=== PATIENT | female | born 1950 | race Caucasian/White ===

== ENCOUNTER 2020-03-15 15:55 | Observation (INO) | payer OTHER ==
[~2020-03-15] VITALS: Ht 152.4 cm; Wt 77.1 kg
[2020-03-15 16:04] VITALS: BP 171/92
[2020-03-15] MEDS ORDERED: DORYX MPC120 MG PO (16:08)
[2020-03-15] MEDS ORDERED: WELLBUTRIN XL300 MG PO (16:08)
[2020-03-15 16:21] LABS: ABSOLUTE BASOPHILS 0.1 thou/uL (0.0-0.2); ABSOLUTE EOSINOPHILS 0.2 thou/uL (0.0-0.7); ABSOLUTE LYMPHOCYTES 1.9 thou/uL (0.8-5.3); ABSOLUTE MONOCYTES 0.6 thou/uL (0.0-1.2); ABSOLUTE NEUTROPHILS 3.4 thou/uL (1.6-8.1); BASOPHILS 0.9 %; EOSINOPHILS 3.6 %; HEMATOCRIT 39.4 % (37.0-47.0); HEMOGLOBIN 13.2 gm/dL (12.0-15.0); LYMPHOCYTES 31.1 %; MCHC 33.5 g/dL (28.0-37.0); MCV 83.5 fL (80.0-100.0); MPV 7.2 fl. (7.2-11.1); NUCLEATED RBCS 0 /100WBC; PLATELET COUNT* 222 thou/uL (150-400); POLYS 54.4 %; RBC 4.72 mil/uL (4.20-5.00); RDW-CV 14.2 % (10.5-14.5); WBC 6.2 thou/uL (4.0-11.0)
[2020-03-15 16:30] LABS: CREATININE 0.8 mg/dL (0.6-1.3)
[2020-03-15 16:33] LABS: APTT 21.8 Seconds (25.0-31.3); PROTIME 9.7 Seconds (9.20-11.50)
[2020-03-15 16:40] LABS: ALBUMIN 4.1 g/dL (3.4-5.0); MAGNESIUM 2.2 mg/dL (1.8-2.4); TOTAL BILIRUBIN 0.3 mg/dL (<0.1-1.0); TOTAL PROTEIN 7.9 g/dL (6.4-8.2)
[2020-03-15 17:20] LABS: INR < 0.9
[2020-03-15 19:39] VITALS: BP 132/65
[2020-03-15 20:00] VITALS: BP 120/70
[2020-03-15] MEDS ORDERED: ACYCLOVIR 200200 MG PO (23:09)
[2020-03-15] MEDS ORDERED: XALATAN2.5 M1 OPHTHALMIC (23:11)
[2020-03-15] MEDS ORDERED: D3-200050 MCG PO (23:13)
[2020-03-15] MEDS ORDERED: CO Q-10200 MG PO (23:13)
[2020-03-15] MEDS ORDERED: OMEGA 3 1,0001 EACH PO (23:15)
[2020-03-15] MEDS ORDERED: RED YEAST RICE600 M1 PO (23:16)
[2020-03-15] MEDS ORDERED: VITAMIN C500 M1 PO (23:17)
[2020-03-15] MEDS ORDERED: B12 ACTIVE1000 MCG PO (23:17)
[2020-03-16 00:59] LABS: HEMATOCRIT 34.3 % (37.0-47.0); HEMOGLOBIN 11.7 gm/dL (12.0-15.0); MCH 28.5 pg (26.0-34.0); MCHC 34.1 g/dL (28.0-37.0); MCV 83.5 fL (80.0-100.0); MPV 7.4 fl. (7.2-11.1); RBC 4.1 mil/uL (4.20-5.00); RDW-CV 13.8 % (10.5-14.5); WBC 7.8 thou/uL (4.0-11.0)
[2020-03-16 01:24] LABS: CALCIUM 8.8 mg/dL (8.5-10.1); POTASSIUM 3.9 mmol/L (3.5-5.1)
[2020-03-16 01:29] LABS: ALBUMIN 3.6 g/dL (3.4-5.0); TOTAL BILIRUBIN 0.2 mg/dL (<0.1-1.0); TOTAL PROTEIN 6.7 g/dL (6.4-8.2)
[2020-03-16 01:43] VITALS: BP 113/69
--- NOTE | 2020-03-16 07:21 | NUR ---
PT ADMITTED TO 223 @ ABOUT 1999 THIS PM SHIFT. ALERT AND ORIENTED. VSS ON RA. DENIED CHEST PAIN THIS SHIFT. TYLENOL GIVEN FOR ANGEL. PT VOICED SLEEPING OFF AND ON. AMBULATES INDEPENDENTLY. LAC IV INFILTRATED. NEW IV TO LFA 20G SL. CARDIOLOGY CONSULT CALLED. NPO AFTER MIDNIGHT. ABD AND CAROTID US TODAY PER DR ROBERTO. PT ORIENTED TO AND CALL LIGHT. WILL CONTINUE TO MONITOR.
[2020-03-16] MEDS ORDERED: ASA81BEC PO (07:38)
[2020-03-16 07:51] VITALS: BP 115/65
--- NOTE | 2020-03-16 08:59 | NUR ---
ASSUMED CARE OF PT THIS AM AROUND 0715- PREDATOR CONTROL TRAPPER IN PLACE ORDERED, TRACING SR- UPON ASSESSMEN PT NOTED TO BE RESTING IN BED- PT A&O X4- CONT OF B/B- UP AD-CHRISTINA IN ROOM, STEADY GAIT NOTED-LCTA, RESP EVEN AND UN-LABORED- VSS, O2 SAT 94% ON RA- ABD SOFT/ROUND/NON-TENDER, BS X4 QUADS- LAST BM REPORTED 03/15/20- IV NOTED TO LEFT WRIST INTACT AND SL- PT CURRENTLY NPO FOR CARDIO CONSULT AND ABD US THIS SHIFT- RATES HEAD ACHE 06/05, DARK/QUIET ENVIRONMENT IN PLACE- CALL LIGHT AND PESONAL BELONGINGS WITH IN REACH- ALL NEEDS MET AT THIS TIME
--- NOTE | 2020-03-16 09:48 | NUR ---
CM SPOKE TO THE PT TO DISCUSS CM ASSESSMENT. PT A&O, INDEPENDENT WITH ADL'S, AND ACTIVE. PT USES 0 DME. PT HAS 0 HX OF HH OR SNF
[2020-03-16 12:00] VITALS: BP 96/51
--- NOTE | 2020-03-16 13:12 | EKG ---
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 : 1950 Requested By: Kapil Reed Order Number: [id number] MD: Jaskaran Collier Measurements Intervals [place] Rate: 86 P: 59 CO: 144 QRS: -26 QRSD: 96 T: 22 QT: 389 QTc: 466 Interpretive Statements Sinus rhythm Probable left atrial enlargement Borderline left axis deviation Baseline wander in lead(s) I,aVR,aVL,V5 No previous ECG available for comparison Electronically Signed On 03-16-2020 13:11:57 HOSPITAL WELLNESS COORDINATOR by Jaskaran Collier [email or web address] <ELECTRONICALLY SIGNED> By: Jaskaran Collier MD, [facility] 03/16/20 1311 1602 1602 Jaskaran Collier MD, [facility] /EPI
--- NOTE | 2020-03-16 14:10 | EKG ---
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 : 1950 Requested By: Sonya Cheung Order Number: [id number] Tarik MD: Tyrone Martinez Measurements Intervals [place] Rate: 89 P: 56 SD: 147 QRS: -18 QRSD: 96 T: 26 QT: 376 QTc: 458 Interpretive Statements Sinus rhythm Probable left atrial enlargement Borderline left axis deviation Compared to ECG 03/15/2020 16:02:48 No significant changes Electronically Signed On 03-16-2020 14:10:38 RECYCLING CREW SUPERVISOR by Tyrone Martinez [email or web address] <ELECTRONICALLY SIGNED> By: Tyrone Martinez MD, FACC 03/16/20 1410 1209 1209 Tyrone Martinez MD, [facility] /EPI
[2020-03-16 17:28] VITALS: BP 96/51
--- NOTE | 2020-03-16 17:28 | CARDNUC ---
[place] [address] CARDIAC NUCLEAR IMAGING REPORT Name: GHAZALA HERRERA Room: [address] M.R.#: [id number] Admission: 03/15/20 Attend Phys: Patricia De, Discharge: Date of : 54 Date of Service: 03/16/20 1727 Report #: [id number] THIS REPORT FOR: cc: Jaskaran Escalante David J. DO Liston, Michael J. MD [facility] ~ APPROVED REPORT Imaging Protocol: Stress Tc-99mm Only Study performed: 03/16/2020 09:50:00 Indication: Chest pain with left arm numbness. Patient Location: In-Patient Room #: 223 Stress Tech: Lucille Rodriguez Stress Nurse: Suzette Monson RN NM Tech:MARY JANE Thomas Ht: 5 ft 0 in Wt: 170 lbs BSA: 1.74 m2 BMI: 33.19 Medical History Medical History: Chest pain with left arm numbness, memory loss, HLD, past smoker, obesity, knee stiffness/pain. Medications: ASA 325 Mg, [place] 3's, Red Yeast Rice. Allergies: PNC, Sulfa ABX, Codeine, Alcohol, Ciprofloxacin, Clarithromycin, Azithromycin, Amoxicillin, Levofloxacin, milk. Cardiac Risk Factors: Age, FHX of CAD, Hyperlipidemia, Past Smoker, obesity. Previous Cardiac Procedures: None Pretest Chest Pain Characteristics: None Exercise History: Physically active Physical Disabilities: Knee discomfort/pain/stiffness. Meds Held (24 hrs): None Exercise Stress At peak stress, the patient was injected intravenously with 28.3mCi of Tc-99m Sestamibi. Time of stress injection: 1535 Date: 03/16/2020 Administration Route: IV Administration Site: Left Hand Gated Stress SPECT was performed 30 [place] [address] CARDIAC NUCLEAR IMAGING REPORT Name: GHAZALA HERRERA Room: [address]R.#: [id number] Admission: 03/15/20 Attend Phys: Patricia De, Discharge: Date of : 54 Date of Service: 03/16/20 1727 Report #: [id number] The images were gated to evaluate regional wall motion and calculate left ventricular ejection fraction. Prone imaging was performed. Stress Test Details Stress Test: Exercise stress testing was performed using a Jc protocol. HR Max Heart Rate (APMHR): 153 bpm Resting HR: 84 bpm Target HR (85% APMHR): 130 bpm Max HR Achieved: 150 bpm % of APMHR: 98 Recovery HR: 106 bpm BP Resting BP: 131/79 mmHg Max BP: 179/76 mmHg Recovery BP: 140/75 mmHg ECG Resting ECG: Sinus Rhythm Stress ECG: Sinus Tachycardia ST Change: None Arrhythmia: None Recovery ECG: Sinus Rhythm Recovery ST Change: None Recovery Arrhythmia: None Clinical Reason for Termination: Completed protocol, Maximal effort, target heart rate achieved. Stress Symptoms: Dyspnea, fatigue. Exercise duration: 7 min 00 sec Exercise capacity: 8.58 METs Overall Exercise Capacity for Age: Superior The patient tolerated Lexiscan infusion without significant cardiac symptoms. Nurse Comments A 69 year old female inpatient presented for a treadmill nuclear stress test r/t chest pain with left arm numbness. Treadmill tolerated to stage 3, exercise capacity - superior. Recovery unremarkable. Patient was stable and stated she felt good when escorted via wheelchair to Nuclear Medicine for imaging. Stress ECG Conclusion The baseline twelve-lead EKG shows sinus [place] [address] CARDIAC NUCLEAR IMAGING REPORT Name: GHAZALA HERRERA Room: [address]#: [id number] Admission: 03/15/20 Attend Phys: Patricia De, Discharge: Date of : 54 Date of Service: 03/16/20 1727 Report #: [id number] segment or T wave abnormality. EKGs obtained during and post exercise show sinus rhythm and sinus tachycardia with no significant ST segment or T wave changes when compared to baseline. There were no stress-induced arrhythmias. Study Quality Study: Good Artifact: No artifact Study Data Post stress, the left ventricular ejection was 86%.. Perfusion Post exercise stress perfusion images show uniform uptake of the radioisotope throughout the myocardium. There were no defects to suggest infarct or ischemia. Wall Motion Normal left ventricular wall motion. Nuclear Conclusion ECG Findings: negative for ischemia Clinical Findings: negative for ischemia Nuclear Findings: negative for ischemia Exercise Capacity: normal Left Ventricular Function: normal Risk Study: low Myocardial perfusion images show no defect to suggest infarct or ischemia. Left ventricular systolic function appears normal on gated studies. This is a low risk study. <Conclusion> The baseline twelve-lead EKG shows sinus rhythm without significant ST segment or T wave abnormality. EKGs obtained during and post exercise show sinus rhythm and sinus tachycardia with no significant ST segment or T wave changes when compared to baseline. There were no stress-induced arrhythmias. <ELECTRONICALLY SIGNED> By: Tyrone Martinez MD, FACC 03/16/20 1727 [id number] Tyrone Martinez MD, FACC /INF
[2020-03-16 18:16] VITALS: BP 96/51
== END 2020-03-16 18:00 | disposition home or self-care (01) ==
LOC: M.ERS 15:55 → M.TBA-ER 16:57 → M.2W 16:57
PROVIDERS: Emergency Medicine Emergency Medical Services; ADMIT Internal Medicine; ATTEND Internal Medicine
DX: R07.89 Other chest pain (principal); R14.0 Abdominal distension (gaseous); R41.3 Other amnesia; F32.9 Major depressive disorder, single episode, unspecified; E78.5 Hyperlipidemia, unspecified; Z79.82 Long term (current) use of aspirin; Z79.899 Other long term (current) drug therapy; Z20.828 Contact with and (suspected) exposure to other viral communicable diseases